=== PATIENT | female | born 1950 | race Caucasian/White ===

== ENCOUNTER 2023-01-20 12:32 | Outpatient (CLI) | payer MEDICARE, BC ==
[2023-01-20] MEDS ORDERED: Gadobenate Dimeglumine 529 MG/1 ML (20ML VIAL) ONE (14:05)
== END 2023-01-20 12:33 | disposition home or self-care (01) ==
LOC: CSHMRI 12:32
PROVIDERS: ATTEND Physician Assistant
DX: H90.3 Sensorineural hearing loss, bilateral (principal)
CPT/HCPCS: 70553; 82565; A9577